=== PATIENT | female | born 1990 | race Caucasian/White ===

== ENCOUNTER 2018-06-19 10:02 | Emergency (ER) | payer MEDICAID ==
[~2018-06-19] VITALS: Ht 170.2 cm; Wt 100.2 kg
[2018-06-19 10:12] VITALS: Ht 170.2 cm; Wt 100.2 kg
[2018-06-19 12:14] VITALS: BP 149/79
== END 2018-06-19 12:14 | disposition home or self-care (01) ==
LOC: ED 10:02
DX: H66.93 Otitis media, unspecified, bilateral (principal); H72.93 Unspecified perforation of tympanic membrane, bilateral; E66.9 Obesity, unspecified; Z88.0 Allergy status to penicillin
CPT/HCPCS: 82962

== ENCOUNTER 2019-12-16 16:35 | Emergency (ER) | payer MEDICAID, SELFPAY ==
[~2019-12-16] VITALS: Ht 170.2 cm; Wt 104.3 kg
[2019-12-16 16:38] VITALS: BP 143/85; Ht 170.2 cm; Wt 104.3 kg
== END 2019-12-16 17:31 | disposition home or self-care (01) ==
LOC: ED 16:35
DX: U07.1 COVID-19 (principal); Z88.0 Allergy status to penicillin
CPT/HCPCS: U0003

== ENCOUNTER 2020-03-01 11:48 | Emergency (ER) | payer MEDICAID ==
[~2020-03-01] VITALS: Ht 170.2 cm; Wt 104.3 kg
[2020-03-01 11:58] VITALS: Ht 170.2 cm; Wt 104.3 kg
[2020-03-01 13:33] VITALS: BP 135/84
== END 2020-03-01 13:33 | disposition home or self-care (01) ==
LOC: ED 11:48
DX: H60.92 Unspecified otitis externa, left ear (principal)